=== PATIENT | female | born 1975 | race Caucasian/White ===

== ENCOUNTER → 2017-08-19 | Day surgery (SDC) | payer OTHER ==
[~2017-08-19] MED LIST: MEPERIDINE PF 25 MG/ML VIAL.; MIDAZOLAM HCL/PF 5 MG/5 ML VIAL.; diphenhydrAMINE 50 MG/ML VIAL
[2017-08-19] MEDS: IV RINGERS,LACTATED 1000ML 1,000 ML IV (16:26)
[2017-08-19 17:14] LABS: NEG OBC UR NEG; POS OBC UR POS
[2017-08-19 17:15] LABS: U PREG PATIENT NEGATIVE (NEG)
[2017-08-19] MEDS: diphenhydrAMINE 50 MG/ML VIAL IV (17:16)
[2017-08-19] MEDS: MIDAZOLAM HCL/PF 5 MG/5 ML VIAL. IV ×5 (17:18→17:52)
[2017-08-19] MEDS: MEPERIDINE PF 25 MG/ML VIAL. IM ×2 (17:20→17:24)
== END | disposition home or self-care (01) ==
LOC: SURG 15:38
DX: K31.89 Other diseases of stomach and duodenum (principal); K64.0 First degree hemorrhoids; K21.9 Gastro-esophageal reflux disease without esophagitis; K58.9 Irritable bowel syndrome, unspecified; Z83.3 Family history of diabetes mellitus; Z82.49 Family history of ischemic heart disease and other diseases of the circulatory system; Z80.41 Family history of malignant neoplasm of ovary; Z87.891 Personal history of nicotine dependence; Z98.890 Other specified postprocedural states
CPT/HCPCS: 43239; 45378; 45380; 81025; 88305; 99152; G0500; J1200; J2175; J2250

== ENCOUNTER 2017-12-03 19:25 | Emergency (ER) | payer OTHER ==
[~2017-12-03] VITALS: Ht 165.1 cm; Wt 61.2 kg
--- NOTE | 2017-12-03 19:48 | PHYS DOC ---
Adult General Chief Complaint Chief Complaint: ABDOMINAL PAIN IN [facility] HPI Patient is a 42 year old female who presents with intermittent episodes of 3 out of 10 sharp bilateral pelvic pain and back pain that has been going on since yesterday. Patient denies any nausea vomiting. She states she is currently 4 weeks last menstrual cycle November 04, 2017. She is a 3 para 1 with one miscarriage at approximately 8 weeks. Patient denies any vaginal bleeding. Denies any unusual vaginal discharge or concerns for STDs. Review of Systems Review of Systems Constitutional: Denies fever or chills [] Eyes: Denies change in visual acuity, redness, or eye pain [] HENT: Denies nasal congestion or sore throat [] Respiratory: Denies cough or shortness of breath [] Cardiovascular: No additional information not addressed in HPI [] GI: Reports abdominal pain in . Denies nausea, vomiting, bloody stools or diarrhea [] : Denies dysuria or hematuria [] Musculoskeletal: Reports low back pain Integument: Denies rash or skin lesions [] Neurologic: Denies headache, focal weakness or sensory changes [] All other systems were reviewed and found to be within normal limits, except as documented in this note. Allergies Allergies Allergies Coded Allergies Type Severity Reaction Last Updated Verified No Known Drug Allergies 08/19/17 No Physical Exam Physical Exam Constitutional: Well developed, well nourished, no acute distress, non-toxic appearance. [] HENT: Normocephalic, atraumatic, bilateral external ears normal, oropharynx moist, no oral exudates, nose normal. [] Eyes: PERRLA, EOMI, conjunctiva normal, no discharge. [] Neck: Normal range of motion, no tenderness, supple, no stridor. [] Cardiovascular:Heart rate regular rhythm, no murmur [] Lungs & Thorax: Bilateral breath sounds clear to auscultation [] Abdomen: Bowel sounds normal, soft, no tenderness, no masses, no pulsatile masses. [] Pelvic exam External pelvic appears normal, cervix is closed, no CMT, no adnexal tenderness , small amount of white discharge in the vaginal vault. Skin: Warm, dry, no erythema, no rash. [] Back: No tenderness, no CVA tenderness. [] Extremities: No tenderness, no cyanosis, no clubbing, ROM intact, no edema. [] Neurologic: Alert and oriented X 3, normal motor function, normal sensory function, no focal deficits noted. [] Psychologic: Affect normal, judgement normal, mood normal. [] Current Patient Data Vital Signs Vital Signs Date Time Temp Pulse Resp B/P (MAP) Pulse Ox O2 Delivery O2 Flow Rate FiO2 12/03/17 19:46 98.2 69 17 121/62 (81) 100 Room Air 98.2 Lab Values Laboratory Tests Test 12/03/17 19:42 12/03/17 19:43 12/03/17 20:00 POC Urine HCG, Qualitative Hcg positive (Negative) Urine Collection Type Unknown Urine Color Yellow Urine Clarity Clear Urine pH 5.0 Urine Specific [place] 1.015 Urine Protein Negative mg/dL (NEG-TRACE) Urine Glucose (UA) Negative mg/dL (NEG) Urine Ketones (Stick) Trace mg/dL (NEG) Urine Blood Negative (NEG) Urine Nitrite Negative (NEG) Urine Bilirubin Negative (NEG) Urine Urobilinogen Dipstick 0.2 mg/dL (0.2 mg/dL) Urine Leukocyte Esterase Negative (NEG) Urine RBC 0 /HPF (0-2) Urine WBC 0 /HPF (0-4) Urine Squamous Epithelial Cells Few /LPF Urine Bacteria Moderate /HPF (0-FEW) White Blood Count 4.3 x10^3/uL (4.0-11.0) Red Blood Count 4.29 x10^6/uL (3.50-5.40) Hemoglobin 13.8 g/dL (12.0-15.5) Hematocrit 40.7 % (36.0-47.0) Mean Corpuscular Volume 95 fL (79-100) Mean Corpuscular Hemoglobin 32 pg (25-35) Mean Corpuscular Hemoglobin Concent 34 g/dL (31-37) Red Cell Distribution Width 12.5 % (11.5-14.5) Platelet Count 231 x10^3/uL (140-400) Neutrophils (%) (Auto) 52 % (31-73) Lymphocytes (%) (Auto) 34 % (24-48) Monocytes (%) (Auto) 10 % (0-9) H Eosinophils (%) (Auto) 3 % (0-3) Basophils (%) (Auto) 2 % (0-3) Neutrophils # (Auto) 2.2 x10^3uL (1.8-7.7) Lymphocytes # (Auto) 1.5 x10^3/uL (1.0-4.8) Monocytes # (Auto) 0.4 x10^3/uL (0.0-1.1) Eosinophils # (Auto) 0.1 x10^3/uL (0.0-0.7) Basophils # (Auto) 0.1 x10^3/uL (0.0-0.2) Maternal Serum HCG Beta Subunit 959 mIU/mL (0-5) H Sodium Level 139 mmol/L (136-145) Potassium Level 3.6 mmol/L (3.5-5.1) Chloride Level 103 mmol/L (98-107) Carbon Dioxide Level 25 mmol/L (21-32) Anion Gap 11 (6-14) Blood Urea Nitrogen 17 mg/dL (7-20) Creatinine 0.8 mg/dL (0.6-1.0) Estimated GFR (Cockcroft-Gault) 79.4 BUN/Creatinine Ratio 21 (6-20) H Glucose Level 81 mg/dL (70-99) Calcium Level 8.8 mg/dL (8.5-10.1) Total Bilirubin 0.3 mg/dL (0.2-1.0) Aspartate Amino Transferase (AST) 30 U/L (15-37) Alanine Aminotransferase (ALT) 55 U/L (14-59) Alkaline Phosphatase 85 U/L (46-116) Total Protein 7.2 g/dL (6.4-8.2) Albumin 3.7 g/dL (3.4-5.0) Albumin/Globulin Ratio 1.1 (1.0-1.7) Lipase 134 U/L (73-393) Laboratory Tests 12/03/17 20:00 Laboratory Tests 12/03/17 20:00 Microbiology 12/03/17 Wet Prep - Final, Complete EKG EKG [] Radiology/Procedures Radiology/Procedures []PROCEDURE: OB <14 WKS W/TV OB ultrasound less than 14 weeks to include transabdominal and transvaginal imaging 12/03/2017 CLINICAL HISTORY: First trimester with pelvic pain for one day. TECHNIQUE: Using the distended urinary bladder as a sonographic window, a real-time ultrasound examination of the pelvis was performed. Additionally in an attempt to better evaluate the uterus and adnexa, a transvaginal ultrasound study was performed. Multiple images were obtained. FINDINGS: The uterus is normal in size. It measures 8.3 x 5.1 x 4.1 cm in longitudinal, transverse, and AP dimensions. The endometrial echo complex measures 9 mm in thickness which is within normal limits. Small amounts of free fluid are seen within the endometrial canal. No gestational sac is definitely visualized. A 6.5 mm nabothian cyst is seen within the cervix. The right ovary is normal in size and echogenicity. It measures 2.5 x 1.6 x 1.6 cm in size. The left ovary measures 3.6 x 1.9 x 1.6 cm in size. A hemorrhagic follicle is seen within the left ovary which measures 1.8 cm in size. A minimal amount of free fluid is seen within the pelvis. IMPRESSION: No IUP is seen. The above ultrasound findings could be seen with a very early IUP, missed spontaneous or possibly due to an due to an occult ectopic . Clinical correlation and correlation with patient's serial beta hCG level is recommended. Electronically signed by: Aj Samson MD (12/03/2017 9:08 PM) [facility] DICTATED and SIGNED BY: AJ SAMSON MD DATE: 12/03/172041 Course & Med Decision Making Course & Med Decision Making Pertinent Labs and Imaging studies reviewed. (See chart for details) This is a 42-year-old female patient 3 para 1 currently 4 weeks who presents today complaining of abdominal pain radiating to her back since yesterday. Positive urine hCG, beta-hCG 959, urine analysis is negative for infection, wet prep positive for BV-discharge and Flagyl. Hemoglobin and hematocrit are normal. CMP with no acute findings, WBCs normal. OB ultrasound no IUP seen. This findings could be seen in very at the IUP missed spontaneous or possibly due to an due to an occult ectopic , serial beta hCGs recommended. Patient was discharged with instructions to follow-up with her PCP or [facility] for serial beta hCGs. She is in no distress. She was provided return precautions and discharged in stable condition. Also recommended pre- vitamins. Dragon Disclaimer Dragon Disclaimer This electronic medical record was generated, in whole or in part, using a voice recognition dictation system. Departure Departure Impression: Primary Impression: Abdominal pain in Additional Impressions: Bacterial vaginosis Disposition: 01 HOME, SELF-CARE Condition: STABLE Referrals: SILVIA MALHOTRA MD (PCP) Follow-up with your [facility] in 2 days for beta-hCG recheck Patient Instructions: Abdominal Pain During , Bacterial Vaginosis, [id number] Additional Instructions: You were evaluated for abdominal pain in . Your beta hCG was 959. We highly recommend you follow-up with an [facility] in 2 days for repeat beta hCGs. You tested positive for bacterial vaginosis, we put you on antibiotics for this , ensure you complete them. Take Tylenol as needed for pain. Please come back to the emergency room at any point your symptoms worsen or you have new concerning symptoms. Take vitamins. Scripts Metronidazole (FLAGYL) 500 Mg Tablet 1 TAB PO BID, #14 TAB Prov: WELLINGTON REINOSO APRN 12/03/17 Problem Qualifiers Primary Impression: Abdominal pain in Trimester: first trimester Qualified Codes: O26.891 - Other specified related conditions, first trimester; R10.9 - Unspecified abdominal pain Additional Impressions: Weeks of gestation: less than 8 weeks Qualified Codes: Z3A.01 - Less than 8 weeks gestation of WELLINGTON REINOSO APRN Dec 03, 2017 19:48
[2017-12-03 19:54] LABS: BILIRUBIN,URINE NEGATIVE (NEG); CLARITY,URINE CLEAR; COLOR,URINE YELLOW; NITRITE,URINE NEGATIVE (NEG); PROTEIN,URINE NEGATIVE (NEG-TRACE); UROBILINOGEN,URINE 0.2 mg/dL (0.2 mg/dL)
[2017-12-03 20:03] LABS: BACTERIA,URINE MODERATE /HPF (0-FEW); RBC,URINE 0 /HPF (0-2); SQUAMOUS EPITHELIAL CELL,UR FEW /LPF; WBC,URINE 0 /HPF (0-4)
[2017-12-03 20:14] LABS: BASO # 0.1 x10^3/uL (0.0-0.2); BASO % 2 % (0-3); EOS # 0.1 x10^3/uL (0.0-0.7); EOS % 3 % (0-3); HEMATOCRIT 40.7 % (36.0-47.0); HEMOGLOBIN 13.8 g/dL (12.0-15.5); LYMPH # 1.5 x10^3/uL (1.0-4.8); LYMPH % 34 % (24-48); MEAN CORPUSCULAR HEMOGLOBIN 32 pg (25-35); MEAN CORPUSCULAR HGB CONC 34 g/dL (31-37); MEAN CORPUSCULAR VOLUME 95 fL (79-100); MONO # 0.4 x10^3/uL (0.0-1.1); MONO % 10 % (0-9); NEUT # 2.2 x10^3uL (1.8-7.7); NEUT % 52 % (31-73); PLATELET COUNT 231 x10^3/uL (140-400); RED BLOOD COUNT 4.29 x10^6/uL (3.50-5.40); RED CELL DISTRIBUTION WIDTH 12.5 % (11.5-14.5); WHITE BLOOD COUNT 4.3 x10^3/uL (4.0-11.0)
[2017-12-03 20:41] LABS: CALCIUM 8.8 mg/dL (8.5-10.1); CREATININE 0.8 mg/dL (0.6-1.0); GFR 79.4; POTASSIUM 3.6 mmol/L (3.5-5.1)
[2017-12-03 20:54] LABS: ALBUMIN 3.7 g/dL (3.4-5.0); ALBUMIN/GLOBULIN RATIO 1.1 (1.0-1.7); TOTAL BILIRUBIN 0.3 mg/dL (0.2-1.0); TOTAL PROTEIN 7.2 g/dL (6.4-8.2)
[2017-12-03 21:11] VITALS: BP 105/60
--- NOTE | 2017-12-03 21:12 | RAD ---
OB ultrasound less than 14 weeks to include transabdominal and transvaginal imaging 12/03/2017 CLINICAL HISTORY: First trimester with pelvic pain for one day. TECHNIQUE: Using the distended urinary bladder as a sonographic window, a real-time ultrasound examination of the pelvis was performed. Additionally in an attempt to better evaluate the uterus and adnexa, a transvaginal ultrasound study was performed. Multiple images were obtained. FINDINGS: The uterus is normal in size. It measures 8.3 x 5.1 x 4.1 cm in longitudinal, transverse, and AP dimensions. The endometrial echo complex measures 9 mm in thickness which is within normal limits. Small amounts of free fluid are seen within the endometrial canal. No gestational sac is definitely visualized. A 6.5 mm nabothian cyst is seen within the cervix. The right ovary is normal in size and echogenicity. It measures 2.5 x 1.6 x 1.6 cm in size. The left ovary measures 3.6 x 1.9 x 1.6 cm in size. A hemorrhagic follicle is seen within the left ovary which measures 1.8 cm in size. A minimal amount of free fluid is seen within the pelvis. IMPRESSION: No IUP is seen. The above ultrasound findings could be seen with a very early IUP, missed spontaneous or possibly due to an due to an occult ectopic . Clinical correlation and correlation with patient's serial beta hCG level is recommended. Electronically signed by: Aj Rocha MD (12/03/2017 9:08 PM) [facility]
[2017-12-03] MEDS ORDERED: METR500T PO (21:34)
[2017-12-05 15:28] LABS: GC PROBE Negative (Negative)
== END 2017-12-03 21:45 | disposition home or self-care (01) ==
LOC: ER 19:25
DX: O23.591 Infection of other part of genital tract in pregnancy, first trimester (principal); N76.0 Acute vaginitis; B96.89 Other specified bacterial agents as the cause of diseases classified elsewhere; Z3A.01 Less than 8 weeks gestation of pregnancy
CPT/HCPCS: 36415; 76801; 76817; 80053; 81001; 81025; 83690; 84702; 85025; 87086; 87491; 87591; 99285; Q0111

== ENCOUNTER → 2020-11-16 | Outpatient (CLI) | payer OTHER ==
[~2020-11-16] MED LIST changes: -MEPERIDINE PF 25 MG/ML VIAL.; +METR500T PO; -MIDAZOLAM HCL/PF 5 MG/5 ML VIAL.; -diphenhydrAMINE 50 MG/ML VIAL
--- NOTE | 2020-11-16 16:13 | KCIC ---
EXAM: Lumbar spine MRI without contrast. HISTORY: Lumbar radiculopathy. TECHNIQUE: Multiplanar, multisequence magnetic resonance imaging of the lumbar spine was performed wi thout contrast. COMPARISON: None. FINDINGS: There is minimal lumbar scoliosis. There is 2 mm grade 1 anterolisthesis of L4 and L5. Ther e is slight disc desiccation at L5-S1, and to a lesser extent, L4-L5. There is degenerative endplate marrow signal change along the anterior inferior aspect of T11. The conus terminates at T12-L1. There is no suspicious osseous lesion. There is no fracture. There are few benign osseous hemangiomas. At L1-L2, L2-L3 and L3-L4, there is no stenosis. At L4-L5, there is a disc bulge and endplate remodeling. There is mild bilateral facet arthropathy. T here is mild right and minimal left foraminal stenosis. At L5-S1, there is a left lateral recess to foraminal disc protrusion and annular tear. There is mini mal bilateral facet arthropathy. There is slight left lateral recess narrowing. IMPRESSION: Minimal degenerative change involving the lower lumbar spine, described in detail above. This results in mild right and minimal left foraminal stenosis at L4-L5 and minimal left lateral rece ss narrowing at L5-S1. Electronically signed by: Asmita Zapata MD (11/16/2020 4:10 PM) [id number]
== END ==
LOC: KCIC MRI 14:50
PROVIDERS: ATTEND Physician Assistant
DX: M51.17 Intervertebral disc disorders with radiculopathy, lumbosacral region (principal); M47.27 Other spondylosis with radiculopathy, lumbosacral region; M48.07 Spinal stenosis, lumbosacral region
CPT/HCPCS: 72148

== ENCOUNTER → 2021-02-15 | Outpatient (CLI) | payer OTHER ==
--- NOTE | 2021-02-15 14:32 | KCIC ---
STUDY: MRI of the left knee without contrast INDICATION: Left knee pain. COMPARISON: 11/27/2020 radiographs TECHNIQUE: Multiplanar MR imaging of the left knee performed without the use of intravenous or intra- articular contrast. FINDINGS: Menisci: The medial and lateral menisci are intact. Cruciate ligaments: Intact ACL and PCL. Collateral ligaments: Unremarkable medial and lateral collateral ligaments, retinacula and IT band. Tendons: No tendon tear or significant tendinosis. Cartilage: Patellofemoral: Mild patellar chondrosis with a favored partial thickness fissure along the lateral m argin of the median ridge, image 12 series 3. High-grade localized chondrosis at the mid to lower asp ect of the trochlear groove measuring approximately 8 mm craniocaudal by 7 mm transverse, image 10 se lilia 5. Lateral and medial compartments: Possible mild chondrosis at a few locations such as at the central w eightbearing lateral tibial plateau without a high-grade or full-thickness defect. Bones: Degenerative subchondral cystic change at the trochlear groove and very faintly at the site of the patellar chondral fissure. Normal TT-TG distance of 10 mm. Miscellaneous: Small amount of joint fluid. Unremarkable popliteal fossa soft tissues and fat pads. IMPRESSION: 1. Intact menisci, cruciate ligaments and collateral ligaments. 2. 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 Subtle chondral fissure at the lateral margin of the miranda lar median ridge. No high-grade chondrosis at the medial or lateral compartments. Electronically signed by: JOSE CAMPBELL MD (02/15/2021 2:29 PM) [id number]
== END ==
LOC: KCIC MRI 10:14
PROVIDERS: ATTEND Physician Assistant
DX: M22.42 Chondromalacia patellae, left knee (principal); M25.372 Other instability, left ankle; M76.822 Posterior tibial tendinitis, left leg; M25.572 Pain in left ankle and joints of left foot
CPT/HCPCS: 73721

== ENCOUNTER → 2021-02-26 | Outpatient (CLI) | payer OTHER ==
--- NOTE | 2021-02-27 09:06 | KCIC ---
EXAM: MRI LEFT ANKLE/HINDFOOT DATE: 02/26/2021 12:47 PM CLINICAL INDICATION: Reason: INSTABILITY OF JOINT, TIBIAL TENDINITIS OF LEG, LEFT ANKLE PAIN / Spl. I nstructions: / History: Chronic medial ankle pain for yrs after an injury. COMPARISON: 01/30/2021. TECHNIQUE: Multiplanar, multisequence MR imaging of the left ankle was performed without IV contrast. FINDINGS: Small ankle joint effusion. Small subtalar joint effusion. Physiologic talonavicular joint fluid. Posterior tibialis, flexor digitorum longus and flexor hallucis longus tendons are intact. Peroneus longus and peroneus brevis tendons are intact. The peroneal tendons are anatomically positio felix behind the lateral malleolus. Anterior tibialis, extensor digitorum longus and extensor hallucis longus tendons are intact. Achilles tendon intact with normal signal and morphology. Low-lying soleus. Plantar fascia intact wit hout marginal osteitis or soft tissue swelling. Physiologic fluid at the retrocalcaneal bursa. Ligaments: The deltoid ligament is grossly intact Lateral collateral stabilizing ligaments including the anterior talofibular ligament are intact. Anterior and posterior tibiofibular ligaments are intact. Spring ligament intact. Ligaments of the Sinus Tarsi are intact. Spaces/Places: Sinus Tarsi within normal limits, without mass lesion or edema pattern. Tarsal tunnel within normal limits, without mass lesion. Articular Cartilage/joint line: Articular cartilage at the tibiotalar joint preserved. Negative osteochondral lesion of the talar dom e. Posterior and middle subtalar joint spaces are preserved. Chondral thinning and subchondral edema calcaneocuboid joint Bone/Bone Marrow: No fracture or osteonecrosis. IMPRESSION: 1. Calcaneocuboid degenerative change. 2. Low-lying soleus is incidentally seen. 3. The deltoid ligament is grossly intact Electronically signed by: Lew Munoz MD (02/27/2021 9:04 AM) [id number]
== END ==
LOC: KCIC MRI 12:42
PROVIDERS: ATTEND Physician Assistant
DX: M19.072 Primary osteoarthritis, left ankle and foot (principal); M25.472 Effusion, left ankle; M25.372 Other instability, left ankle; M76.822 Posterior tibial tendinitis, left leg
CPT/HCPCS: 73721

== ENCOUNTER → 2021-07-16 | Outpatient (CLI) | payer OTHER ==
[~2021-07-16] MED LIST changes: +CONTRAST GIVEN. MC PRN; +GADOTERATE 5 MMOL/10ML VIAL. IVP ONE; +IOHEXOL 300 MG/ML 50 ML VIAL. INT ART ONE; +LIDOCAINE 1% Multi-Dose 20 ML VIAL. INJ ONE
--- NOTE | 2021-07-17 07:47 | RAD ---
EXAM: Fluoroscopically guided right shoulder joint injection for MRI arthrogram INDICATION: Right labral tear COMPARISON: Shoulder radiograph 06/13/2021 TECHNIQUE/FINDINGS: The purpose of the procedure and risks including infection, bleeding, contrast reaction, and pain wer e discussed with the patient. Informed consent was obtained. A timeout was performed. After obtaining consent, the patient was placed supine on the fluoroscopy table with the shoulder ex ternally rotated. The skin overlying the right shoulder was marked, sterilized and draped. Superfic ial and deep soft tissues were anesthetized with 1% lidocaine. Utilizing fluoroscopic guidance, a 22 -gauge spinal needle was advanced into the joint. Intraarticular position was confirmed with injectio n of a small amount of iodinated contrast. Subsequently, 10 cc of a solution containing the followin g items was instilled into the joint: 20 mL of sterile saline and 0.1 mL of gadolinium. At the end of the procedure, the needle was removed. The overlying skin was cleansed and covered wit h a bandaid. The patient tolerated the procedure well and was free of immediate complications. The p atient was transferred for the MR portion of the exam in stable condition. Total fluoroscopic time: 0.1 minutes. IMPRESSION: Technically successful right shoulder injection for the purposes of MR arthrogram. Electronically signed by: Clement Oh MD (07/16/2021 2:42 PM) [id number]
--- NOTE | 2021-07-17 10:42 | RAD ---
EXAM: MRI arthrogram right shoulder DATE: 07/16/2021 2:02 PM COMPARISON: None INDICATION: Reason: RIGHT SHOULDER PAIN, RIGHT GLENOID LABRUM TEAR / Spl. Instructions: Arthrogram po st injection of right shoulder joint TECHNIQUE: Multiplanar, multisequence MRI arthrogram of the right shoulder was performed following th e administration of intra-articular gadolinium contrast. FINDINGS: Iatrogenic distention of the right glenohumeral joint with gadolinium contrast. AC joint degenerative changes are seen with small osteophytes. Type II acromion. Subacromial-subdeltoid bursal edema, bursitis. Supraspinatus and infraspinatus tendinosis. No rotator cuff tear. Long head biceps tendon is intact. There is trace blunting of the posterior labrum with mild chondral thinning. Otherwise the articular cartilage is preserved. No acute fracture or osteonecrosis. IMPRESSION: 1. Trace blunting posterior labrum with mild chondral thinning may be seen with posterior GLAD type tear. Subacromial-subdeltoid bursal edema, bursitis. 2. Supraspinatus and infraspinatus tendinosis. No rotator cuff tear. Electronically signed by: Lew Munoz MD (07/17/2021 10:39 AM) [id number]
== END | disposition home or self-care (01) ==
LOC: RAD 13:02
PROVIDERS: ATTEND Physician Assistant
DX: M25.511 Pain in right shoulder (principal); M25.711 Osteophyte, right shoulder; S43.401A Unspecified sprain of right shoulder joint, initial encounter; K21.9 Gastro-esophageal reflux disease without esophagitis; X58.XXXA Exposure to other specified factors, initial encounter; Y93.89 Activity, other specified; Y92.89 Other specified places as the place of occurrence of the external cause; Y99.8 Other external cause status
CPT/HCPCS: 23350; 73222; 77002; A9575; J3490; Q9967